=== PATIENT | male | born 1970 | race Caucasian/White ===

== ENCOUNTER 2025-04-18 03:50 | Observation (INO) ==
[2025-04-18] MEDS ORDERED: IOPAMIDOL 100 ML BOTTLE IV ONE (03:51)
[2025-04-18] MEDS: ONDANSETRON 4 MG/2 ML VIAL IV ONE (04:28)
[2025-04-18] MEDS: KETOROLAC 15 MG/ML VIAL IV ONE (04:28)
[2025-04-18 04:37] LABS: Basophils # (Auto) 0.04 K/mcL (0.00-0.30); Basophils % (Auto) 0.3 % (0.0-2.0); Eosinophils # (Auto) 0.09 K/mcL (0.00-0.70); Eosinophils % (Auto) 0.8 % (0.0-7.0); Hematocrit 41.7 % (40.1-51.0); Hemoglobin 13.8 g/dL (13.7-17.5); Lymphocytes # (Auto) 1.20 K/mcL (1.50-4.80); Lymphocytes % (Auto) 10.1 % (15.5-49.0); Mean Corpuscular HGB Conc 33.1 g/dL (31.0-36.0); Monocytes # (Auto) 0.85 K/mcL (0.10-0.90); Monocytes % (Auto) 7.1 % (1.0-12.0); Neutrophils % (Auto) 81.4 % (38.0-78.0); Platelet Count 308 K/mcL (140-440); RBC 4.46 M/mcL (4.63-6.08); WBC 11.9 K/mcL (4.5-11.0)
[2025-04-18 04:57] LABS: ALT/SGPT 16 U/L (<40); AST/SGOT 16 U/L (<40); Albumin 3.9 gm/dL (3.2-5.2); Albumin/Globulin Ratio 1.3 (1.0-2.3); Alkaline Phosphatase 50 U/L (39-117); Anion Gap 10.0 (8.0-16.0); Bilirubin,Total 0.7 mg/dL (0.1-1.0); Blood Urea Nitrogen 15 mg/dL (6-20); Calcium 9.0 mg/dL (8.6-10.4); Carbon Dioxide 23 mmol/L (22-30); Chloride 102 mmol/L (96-108); Globulin 3.0 gm/dL (2.2-3.7); Glucose 141 mg/dL (70-105); Potassium 4.0 mmol/L (3.3-5.1); Sodium 135 mmol/L (133-145)
[2025-04-18 05:10] LABS: CRP,High Sensitivity 72.4 mg/L (1.0-3.0)
[2025-04-18] MEDS: PIPERACILLIN SODIUM/TAZOBACTAM 3.375 GM in DEXTROSE 5% IN WATER 50 ML IV ONE (05:42)
[2025-04-18] MEDS: LACTATED RINGERS 1,000 ML IV SCH (06:50)
[2025-04-18 06:52] LABS: Bacteria,Urine Many /hpf (0); Bilirubin,Urine NEGATIVE (Negative); Color,Urine LT. YELLOW; Glucose,Urine (UA) NEGATIVE (Negative); Ketones,Urine NEGATIVE (Negative); Leukocyte Esterase,Urine SMALL /uL (Negative); PH,Urine 5.5 (5.0-9.0); Protein,Urine TRACE mg/dL (Negative); Specific Gravity,Urine <= 1.005 (1.000-1.035); Urobilinogen,Urine 0.2 mg/dL
[2025-04-18] MEDS ORDERED: ONDANSETRON 4 MG/2 ML VIAL IV PRN (08:41)
[2025-04-18] MEDS ORDERED: HYDROmorphone 0.5 MG/0.5 ML SYRINGE IV PRN (08:41)
[2025-04-18] MEDS ORDERED: IPRATROPIUM/ALBUTEROL 3 ML AMPUL.NEB NEB PRN (08:41)
[2025-04-18] MEDS ORDERED: DEXTROSE 50% 50 ML VIAL IV PRN (08:41)
[2025-04-18] MEDS ORDERED: DEXTROSE 31 GM ORAL.SUSP PO PRN (08:41)
[2025-04-18] MEDS: 0.9 % SODIUM CHLORIDE 1,000 ML IV SCH (08:53)
[2025-04-18] MEDS: DOCUSATE SODIUM 100 MG CAPSULE PO SCH (08:53)
[2025-04-18] MEDS: ACETAMINOPHEN 325 MG TABLET PO PRN (08:53)
[2025-04-18] MEDS: ENOXAPARIN 40 MG/0.4 ML SYRINGE SQ SCH ×2 (08:59→21:39)
[2025-04-18] MEDS: cefTRIAXone 1 GM VIAL IV SCH (08:59)
[2025-04-18] MEDS: INSULIN LISPRO 1 UNIT/0.01 ML UNIT SQ SCH (11:08)
[2025-04-18] MEDS: 0.9 % SODIUM CHLORIDE 10 ML SYRINGE IV SCH (13:10)
[2025-04-18] MEDS: KETOROLAC 30 MG/ML VIAL IV PRN (16:40)
[2025-04-18] MEDS: SENNOSIDES 1 TABLET PO SCH (21:37)
[2025-04-18] MEDS: TAMSULOSIN 0.4 MG CAPSULE PO SCH (21:39)
[2025-04-19 06:52] LABS: Basophils # (Auto) 0.04 K/mcL (0.00-0.30); Basophils % (Auto) 0.6 % (0.0-2.0); Eosinophils # (Auto) 0.19 K/mcL (0.00-0.70); Eosinophils % (Auto) 2.6 % (0.0-7.0); Hematocrit 40.1 % (40.1-51.0); Hemoglobin 12.7 g/dL (13.7-17.5); Lymphocytes # (Auto) 1.11 K/mcL (1.50-4.80); Lymphocytes % (Auto) 15.4 % (15.5-49.0); Mean Corpuscular HGB Conc 31.7 g/dL (31.0-36.0); Monocytes # (Auto) 0.72 K/mcL (0.10-0.90); Monocytes % (Auto) 10.0 % (1.0-12.0); Neutrophils % (Auto) 70.8 % (38.0-78.0); Platelet Count 277 K/mcL (140-440); RBC 4.13 M/mcL (4.63-6.08); WBC 7.2 K/mcL (4.5-11.0)
[2025-04-19 07:06] LABS: ALT/SGPT 14 U/L (<40); AST/SGOT 17 U/L (<40); Albumin 3.4 gm/dL (3.2-5.2); Albumin/Globulin Ratio 1.2 (1.0-2.3); Alkaline Phosphatase 40 U/L (39-117); Anion Gap 9.0 (8.0-16.0); Bilirubin,Total 0.5 mg/dL (0.1-1.0); Blood Urea Nitrogen 15 mg/dL (6-20); Calcium 8.6 mg/dL (8.6-10.4); Carbon Dioxide 23 mmol/L (22-30); Chloride 105 mmol/L (96-108); Globulin 2.8 gm/dL (2.2-3.7); Glucose 90 mg/dL (70-105); Potassium 4.2 mmol/L (3.3-5.1); Sodium 137 mmol/L (133-145)
[2025-04-19 07:41] LABS: Estimated Average Glucose(eAG) 128 mg/dL; Hemoglobin A1C 6.1 % Hgb (4.0-6.0)
[2025-04-19] MEDS: LISINOPRIL 20 MG TABLET PO SCH (08:15)
[2025-04-19] MEDS: PIOGLITAZONE 15 MG TABLET PO SCH (08:15)
== END 2025-04-19 13:00 | disposition home or self-care (01) ==
LOC: MEDSUR 03:50 → ED 03:50 → MEDSUR 08:43
PROVIDERS: ADMIT Internal Medicine; ATTEND Internal Medicine